=== PATIENT | male | born 1990 | race Caucasian/White ===

== ENCOUNTER 2019-01-26 16:13 | Emergency (ER) | payer BC, SELFPAY ==
[2019-01-26] VITALS (18 sets, daily range): BP systolic 118–135; BP diastolic 75–114; PULSE 77–106; RESP 13–24; TEMP 36.9; O2SAT 96–100
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
[2019-01-26] MEDS: Normal Saline 1,000 ML 1000 ML IV (17:00)
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
--- NOTE | 2019-01-26 18:30 | NUR.NOTE ---
cervical colar removed as per mdo Nursing Note:
--- NOTE | 2019-01-26 18:55 | NUR.NOTE ---
pt ambulatory to bathroom Nursing Note:
== END 2019-01-26 20:11 | disposition home or self-care (01) ==
PROVIDERS: Emergency Provider Physician Assistant
DX: S06.9X9A Unspecified intracranial injury with loss of consciousness of unspecified duration, initial encounter (principal); R41.0 Disorientation, unspecified; R41.3 Other amnesia; S00.81XA Abrasion of other part of head, initial encounter; S63.502A Unspecified sprain of left wrist, initial encounter; F07.81 Postconcussional syndrome; V18.0XXA Pedal cycle driver injured in noncollision transport accident in nontraffic accident, initial encounter; Y93.55 Activity, bike riding
CPT/HCPCS: 96360; 99284; 70450; 70486; 71046; 72125; 72170